=== PATIENT | female | born 1990 | race Caucasian/White ===

== ENCOUNTER 2018-12-08 21:27 | Emergency (ER) | payer SELFPAY ==
[~2018-12-08] VITALS: Ht 165.1 cm; Wt 82.5 kg
[2018-12-08 21:57] LABS: BASOPHILS # (AUTO) 0.1 X10'3 (0-0.2); BASOPHILS % (AUTO) 1.2 % (0-1); EOSINOPHILS # (AUTO) 0.2 X10'3 (0-0.9); EOSINOPHILS % (AUTO) 2.2 % (0-6); HEMATOCRIT 51.1 % (35.0-45.0); HEMOGLOBIN 17.8 g/dl (12.0-16.0); LYMPHOCYTES # (AUTO) 3.9 X10'3 (1.1-4.8); LYMPHOCYTES % (AUTO) 34.7 % (21-51); MEAN CORPUSCULAR HEMOGLOBIN 32.5 PG (27.0-31.0); MEAN CORPUSCULAR HGB CONC 34.8 g/dL (33.0-36.5); MEAN CORPUSCULAR VOLUME 93.4 FL (78-98); MEAN PLATELET VOLUME 8.1 FL (7.4-10.4); MONOCYTES # (AUTO) 0.9 X10'3 (0-0.9); MONOCYTES % (AUTO) 7.7 % (2-12); NEUTROPHILS % (AUTO) 54.2 % (42-75); PLATELET COUNT 297 X10'3 (140-440); RED BLOOD COUNT 5.48 X10'6 (4.20-5.60); RED CELL DISTRIBUTION WIDTH 13.8 % (11.5-14.5); WHITE BLOOD COUNT 11.2 X10'3 (4.5-11.0)
[2018-12-08 21:59] LABS: CLARITY,URINE CLEAR (Clear); COLOR,URINE YELLOW (Yellow); GLUCOSE, URINE NEGATIVE (Neg); KETONES,URINE NEGATIVE (Neg); LEUKOCYTE ESTERASE ,URINE TRACE (Neg); NITRITES, URINE NEGATIVE (Neg); OCCULT BLOOD,URINE NEGATIVE (Neg); PROTEIN,URINE NEGATIVE (Neg); UA COLLECTION TYPE CLN CATCH MIDSTREAM; UROBILINOGEN,URINE 0.2 E.U/dL (0.2-1.0)
[2018-12-08 22:04] LABS: BACTERIA,URINE NONE SEEN /HPF (Neg); MUCUS STRANDS NONE SEEN /LPF (Neg); RBC,URINE NONE SEEN /HPF (0-2); SQUAMOUS EPITHELIAL CELL,UR NONE SEEN /LPF (FEW); WBC,URINE 0-4 /HPF (0-4)
[2018-12-08 22:12] LABS: D-DIMER 0.43 MG/L FEU (0-0.50)
[2018-12-08 22:16] LABS: ALBUMIN 3.8 G/DL (3.4-5.0); ALKALINE PHOSPHATASE 109 IU/L (46-116); ANION GAP 9 (8-16); BILIRUBIN,TOTAL 0.3 MG/DL (0.1-1.0); BLOOD UREA NITROGEN 18 MG/DL (7-18); BUN/CREATININE RATIO 16.8 (6.6-38.0); CALCIUM 8.9 MG/DL (8.5-10.1); CHLORIDE 104 MMOL/L (99-107); CREATININE 1.07 MG/DL (0.40-0.90); SODIUM 140 MMOL/L (135-145); TOTAL CARBON DIOXIDE 27.4 MMOL/L (24-32); TOTAL PROTEIN 7.7 G/DL (6.4-8.2); TROPONIN I < 0.04 NG/ML (0.0-0.05); eGFR 61 ML/MIN
[2018-12-08 22:28] LABS: GLUCOSE 113 MG/DL (70-104); POTASSIUM 3.6 MMOL/L (3.5-5.1)
[2018-12-08 22:31] LABS: ALANINE AMINOTRANSFERASE 46 U/L (12-78); ASPARTATE AMINO TRANSFERASE 30 U/L (10-37)
[2018-12-08 22:59] VITALS: BP 133/78
== END 2018-12-08 23:00 | disposition home or self-care (01) ==
LOC: ER 21:27
DX: R03.0 Elevated blood-pressure reading, without diagnosis of hypertension (principal); R42 Dizziness and giddiness
CPT/HCPCS: 36415; 80053; 81001; 84484; 85025; 85379; 87088; 93005; 99284

== ENCOUNTER 2024-04-02 16:20 | Emergency (ER) | payer SELFPAY ==
[~2024-04-02] VITALS: Ht 165.1 cm; Wt 75.0 kg
[2024-04-02 17:29] VITALS: BP 122/84; PULSE 80; O2SAT 96
[2024-04-02] MEDS ORDERED: proCHLORperazine 10 MG/2 ml inj IM STA (18:47)
[2024-04-02] MEDS: ketorolac trometh 30MG/ML vial 30 MG/ML VIAL IM STA ×2 (19:40→19:46)
[2024-04-02] MEDS: diphenhydrAMINE 25mg capsule PO STA (19:40)
[2024-04-02 19:46] VITALS: RESP 18
[2024-04-02 19:59] VITALS: TEMP 96.1
== END 2024-04-02 20:01 | disposition home or self-care (01) ==
LOC: EDSEX 16:20 → ER 16:20
DX: R51.9 Headache, unspecified (principal); J06.9 Acute upper respiratory infection, unspecified
CPT/HCPCS: 96372; 99283; J1885; Q0163